=== PATIENT | male | born 1985 | race American Indian/Alaskan Native ===

== ENCOUNTER 2021-04-14 19:58 | Emergency (ER) | payer SELFPAY ==
[2021-04-14 21:56] VITALS: BP 128/69
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
[2021-04-14] MEDS ORDERED: IBUPROFEN 800 MG TAB PO ONE (22:46)
== END 2021-04-14 23:00 | disposition home or self-care (01) ==
LOC: ED 19:58
DX: G89.29 Other chronic pain (principal); M25.561 Pain in right knee; Z79.899 Other long term (current) drug therapy
CPT/HCPCS: 99282